=== PATIENT | male | born 1955 | race African-American/Black ===

== ENCOUNTER 2016-12-19 16:56 | Emergency (ER) | payer OTHER ==
[~2016-12-19] VITALS: Ht 177.8 cm; Wt 81.6 kg
[2016-12-19 18:00] VITALS: BP 180/94
[2016-12-19 18:10] VITALS: BP 180/94
--- NOTE | 2016-12-20 22:15 | Emergency Room Report ---
History of Present Illness General Chief Complaint: Overdose Source: Patient, EMS Present Illness HPI 61-year-old male for evaluation. Patient brought in by EMS. Patient was found on the street. Bizarre behavior. Patient told EMS he smoked PCP. Patient states he feels calm. Does not know why he was brought to ER. Denies hearing voices. Denies any suicidal ideation. Denies any other drug use. Denies chest pain or shortness of breath. No aggravating relieving factors. Denies any other associated symptoms Allergies: Coded Allergies: No Known Allergies (Unverified , 12/19/16) Patient History Past Medical History: none Past Surgical History: none Pertinent Family History: none Social History: Reports: drug use, Denies: alcohol use, smoking Immunizations: UTD Reviewed Nursing Documentation: PMH: Agreed, PSxH: Agreed Nursing Documentation-PMH Hx Hypertension: Yes Hx Neurological Problems: Yes - SUBSTANCE ABUSE Review of Systems All Other Systems: negative except mentioned in HPI Physical Exam Vital Signs Date Time Temp Pulse Resp B/P Pulse Ox O2 Delivery O2 Flow Rate FiO2 12/19/16 16:56 98.4 72 18 180/94 98 Room Air Sp02 EP Interpretation: reviewed, normal General Appearance: no apparent distress, alert, GCS 15, non-toxic Head: normocephalic, atraumatic Eyes: bilateral eye PERRL, bilateral eye normal inspection ENT: hearing grossly normal, normal pharynx, no angioedema, normal voice Neck: full range of motion, supple/symm/no masses Respiratory: chest non-tender, lungs clear, normal breath sounds, speaking full sentences Cardiovascular #1: regular rate, rhythm, no edema Cardiovascular #2: 2+ carotid (R), 2+ carotid (L), 2+ radial (R), 2+ radial (L) , 2+ dorsalis pedis (R), 2+ dorsalis pedis (L) Gastrointestinal: normal bowel sounds, non tender, soft, non-distended, no guarding, no rebound Rectal: deferred Genitourinary: normal inspection, no CVA tenderness Musculoskeletal: back normal, gait/station normal, normal range of motion, non- tender Neurologic: alert, oriented x3, responsive, motor strength/tone normal, sensory intact, speech normal Psychiatric: judgement/insight normal, memory normal, no suicidal/homicidal ideation, anxious Reflexes: 3+ bicep (R), 3+ bicep (L), 3+ tricep (R), 3+ tricep (L), 3+ knee (R) , 3+ knee (L) Skin: normal color, no rash, warm/dry, well hydrated Lymphatic: no adenopathy Medical Decision Making Diagnostic Impression: Primary Impression: Substance abuse ER Course Hospital Course 61-year-old male presents ED for evaluation. Smoked PCP today. Feels okay Clinical course Patient placed on stretcher. Given that patient is able to provide an adequate history, I see no need to check blood work or place an IV. My assessment shows no evidence of SI/HI requiring psychiatric evaluation. Patient is now awake alert oriented x3. ambulating without difficulty. Patient wishes to be discharged. I did not reason to keep patient for further workup Diagnosis - substance abuse stable and discharged to home. Followup with PMD. Return to ED if symptoms recur or worsen Last Vital Signs Date Time Temp Pulse Resp B/P Pulse Ox O2 Delivery O2 Flow Rate FiO2 12/19/16 18:10 98.4 18 180/94 98 Room Air 12/19/16 17:47 72 Status: improved Disposition: HOME, SELF-CARE Condition: Stable Referrals: LILI CARTER,REFERRING (PCP) Patient Instructions: Substance Use Disorder CYNTHIA SILVA M.D. December 20, 2016 22:15
== END 2016-12-19 18:10 | disposition home or self-care (01) ==
LOC: EDBD 16:56 → EMR 17:32
DX: F19.10 Other psychoactive substance abuse, uncomplicated (principal); I10 Essential (primary) hypertension
CPT/HCPCS: 99284

== ENCOUNTER 2017-01-29 18:28 | Emergency (ER) | payer OTHER ==
[~2017-01-29] VITALS: Ht 182.9 cm; Wt 113.4 kg
[~2017-01-29 18:28] MED LIST: UNOBMED
--- NOTE | 2017-01-29 18:33 | Emergency Room Report ---
History of Present Illness General Chief Complaint: Alcohol Intoxication Source: Patient, EMS (BRIANNA HAYNES M.D.) Present Illness HPI 61YOM BIBEMS with [employer] after found naked on the corner of major intersection. C /o left hip pain, ?fall out of wheelchair. Endorses [employer]. Has Rx for Tramadol with him + ETOH. Denies drugs. Denies pain anywhere else Not providing additional HPI as repeatedly moaning but is redirectable Denies other PMHX Has surgical scars on abdomen and right thigh but most answer from what. (BRIANNA HAYNES M.D.) Allergies: Coded Allergies: No Known Allergies (Unverified , 12/19/16) Patient History Past Medical History: none Past Surgical History: none Pertinent Family History: none Social History: Denies: alcohol use, drug use, smoking Immunizations: UTD Reviewed Nursing Documentation: PMH: Agreed, PSxH: Agreed (BRIANNA HAYNES M.D.) Nursing Documentation-PMH Past Medical History: No Stated History Hx Hypertension: Yes Hx Neurological Problems: Yes - SUBSTANCE ABUSE (BRIANNA HAYNES M.D.) Review of Systems All Other Systems: negative except mentioned in HPI (BRIANNA HAYNES M.D.) Physical Exam Vital Signs Date Time Temp Pulse Resp B/P Pulse Ox O2 Delivery O2 Flow Rate FiO2 01/29/17 18:23 98.1 89 16 154/91 100 Room Air Sp02 EP Interpretation: reviewed, normal General Appearance: normal inspection, well appearing, no apparent distress, alert, GCS 15, non-toxic, obese, other - +AOB, repatedly moaning in stretcher Head: normocephalic, atraumatic Eyes: bilateral eye EOMI, bilateral eye PERRL ENT: normal ENT inspection, hearing grossly normal, normal voice Neck: normal inspection, full range of motion, supple, no bony tend Respiratory: normal inspection, lungs clear, normal breath sounds, no respiratory distress, no retraction, no wheezing Cardiovascular #1: regular rate, rhythm, no edema Gastrointestinal: normal inspection, normal bowel sounds, non tender, soft, no guarding, no hernia Genitourinary: no CVA tenderness Musculoskeletal: normal inspection, back normal, normal range of motion, Mary' s Sign negative, other - Right thigh: post-surgical scar lateral aspect. Left hip. Mild ttp. No obvious deformity, bruising. Neurologic: normal inspection, alert, oriented x3, responsive, him analyst III-XII nml as tested, motor strength/tone normal, speech normal Psychiatric: normal inspection, judgement/insight normal, mood/affect normal Skin: normal inspection, normal color, no rash Lymphatic: normal inspection (BRIANNA HAYNES M.D.) Medical Decision Making Diagnostic Impression: Primary Impression: Acute alcoholic intoxication Qualified Codes: F10.920 - Alcohol use, unspecified with intoxication, uncomplicated Additional Impressions: Left hip pain Fall Qualified Codes: W19.XXXA - Unspecified fall, initial encounter Substance abuse ER Course Wheelchair bound, left hip pain s/p alleged fall out of chair - VSS. Afebrile. - PLAN - Xrays left hip, basic labs, ETOH level - Endorsed to Dr Lin at 7pm to followup labs, imaging (BRIANNA HAYNES M.D.) ER Course Is a 61-year-old male who was signed out to me. He presents with left hip pain and alcohol and drug abuse. He is better now. Pain is chronic in nature. He was just at [facility] yesterday for the same thing. X-ray was unremarkable. Patient feeling better now. Not suicidal or homicidal. Does not want to go to a [facility]. We'll discharge home. (CECILIO LIN M.D.) Last Vital Signs Date Time Temp Pulse Resp B/P Pulse Ox O2 Delivery O2 Flow Rate FiO2 01/29/17 18:23 98.1 89 16 154/91 100 Room Air Status: improved (BRIANNA HAYNES M.D.) Status: improved (CECILIO LIN M.D.) Disposition: HOME, SELF-CARE Condition: Stable Patient Instructions: Alcohol Intoxication, [id number] Additional Instructions: Abstain from drugs and alcohol. Followup with your DrDevorah in 7 days. Return if worse. BRIANNA HAYNES M.D. Jan 29, 2017 18:33 CECILIO LIN M.D. Jan 29, 2017 19:16
[2017-01-29 18:34] VITALS: BP 151/87
[2017-01-29 19:25] VITALS: BP 121/67
== END 2017-01-29 19:20 | disposition home or self-care (01) ==
LOC: EDBD 18:28 → EDSEX 18:28 → EMR 18:38
DX: F10.129 Alcohol abuse with intoxication, unspecified (principal); M25.552 Pain in left hip; I10 Essential (primary) hypertension; F19.10 Other psychoactive substance abuse, uncomplicated; W19.XXXA Unspecified fall, initial encounter; Y92.410 Unspecified street and highway as the place of occurrence of the external cause
CPT/HCPCS: 99284